=== PATIENT | male | born 1975 | race Caucasian/White ===

== ENCOUNTER 2021-04-14 23:57 | Emergency (ER) | payer OTHER ==
[~2021-04-14] VITALS: Ht 180.3 cm; Wt 81.0 kg
[2021-04-15] MEDS ORDERED: TORADOL PO (01:54)
[2021-04-15] MEDS ORDERED: FLEXERIL5 M1 PO (01:54)
[2021-04-15 02:20] VITALS: BP 179/100
== END 2021-04-15 02:35 | disposition home or self-care (01) | DRG 563 ==
LOC: ED 23:57
DX: S39.012A Strain of muscle, fascia and tendon of lower back, initial encounter (principal); X50.0XXA Overexertion from strenuous movement or load, initial encounter; Y93.89 Activity, other specified; Y92.009 Unspecified place in unspecified non-institutional (private) residence as the place of occurrence of the external cause